=== PATIENT | female | born 2000 | race American Indian/Alaskan Native ===

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

== ENCOUNTER 2020-08-05 22:13 | Emergency (ER) | payer MEDICAID, OTHER ==
[2020-08-05 22:46] VITALS: BP 134/93
[2020-08-05 23:06] LABS: Basophils % (Auto) 0.3 % (0.0-1.8); Eosinophils # (Auto) 0.1 K/mm3 (0.0-0.4); Eosinophils % (Auto) 1.3 % (0.0-4.3); Hematocrit 38.7 % (30.3-42.9); Hemoglobin 12.8 gm/dl (10.1-14.3); Lymphocytes # (Auto) 2.8 K/mm3 (1.2-5.4); Lymphocytes % (Auto) 52.9 % (13.4-35.0); Mean Corpuscular HGB Conc 33 % (30-34); Mean Corpuscular Volume 86 fl (79-97); Monocytes # (Auto) 0.3 K/mm3 (0.0-0.8); Monocytes % (Auto) 6.2 % (0.0-7.3); Platelet Count 257 K/mm3 (140-440); Red Blood Count 4.53 M/mm3 (3.65-5.03); Red Cell Distribution Width 13.8 % (13.2-15.2)
[2020-08-05 23:29] LABS: Alanine Aminotransferase 9 units/L (7-56); Albumin 4.7 g/dL (3.9-5); Blood Urea Nitrogen 9 mg/dL (7-17); Calcium 9.3 mg/dL (8.4-10.2); Hemolysis Index 5
[2020-08-05 23:30] LABS: BUN/Creatinine Ratio 13
--- NOTE | 2020-08-06 | XRay Report ---
CHEST 2 VIEWS, 08/05/2020 10:20 PM INDICATION: Chest pain COMPARISON: None FINDINGS: Support devices: None. Heart: The cardiac silhouette is normal in size. Lungs/pleura: The lungs are clear of focal airspace disease or significant pleural effusion. Additional findings: No significant acute abnormality. IMPRESSION: 1. No evidence of acute cardiopulmonary process. Signer Name: Valencia Mercer MD Signed: 08/05/2020 11:55 PM Workstation Name: [id number]
--- NOTE | 2020-08-06 00:19 | Emergency Department Report ---
ED General Adult HPI - General Chief complaint: Chest Pain Stated complaint: CHEST PAIN X 2DAYS Time Seen by Provider: 08/05/20 23:54 Source: patient Mode of arrival: Ambulatory Limitations: No Limitations - History of Present Illness Initial comments: Patient is a 19-year-old female who presents for stabbing chest pain for the past 2 days intermittently. Patient denies history of asthma or bronchitis. There is been no fever no chills. No cough no nausea or vomiting. Symptoms are exacerbated by deep breathing and movement. Symptoms are relieved by nothing tried. Patient denies dizziness, lightheadedness, nausea or vomiting, no diaphoresis, no shortness of breath. Patient is tolerating p.o. intake without symptoms. - Related Data Previous Rx's Medication Instructions Recorded Last Taken Type Permethrin 5% [Acticin 5% CREAM] 1 applicatio TP ONCE #1 tube 12/26/16 Unknown Rx Triamcinolone Aceton 0.1% (Nf) 1 applic TP BID #1 tube 12/26/16 Unknown Rx [Kenalog (NF)] hydrOXYzine HCL [Atarax] 25 mg PO Q8H PRN #21 tablet 12/26/16 Unknown Rx Famotidine [Pepcid] 20 mg PO BID #30 tablet 08/06/20 Unknown Rx Naproxen 500 mg PO BID PRN #30 tablet 08/06/20 Unknown Rx Allergies Allergy/AdvReac Type Severity Reaction Status Date / Time peanut Allergy Angioedema Verified 06/25/18 12:01 ED Review of Systems ROS: Stated complaint: CHEST PAIN X 2DAYS Other details as noted in HPI Constitutional: denies: chills, fever Eyes: denies: eye pain, eye discharge, vision change ENT: denies: ear pain, throat pain Respiratory: cough. denies: shortness of breath, wheezing Cardiovascular: chest pain (chest wall pain ) Endocrine: no symptoms reported Gastrointestinal: as per HPI. denies: abdominal pain, nausea, vomiting Genitourinary: denies: urgency, dysuria, discharge Musculoskeletal: denies: back pain, joint swelling, arthralgia Skin: denies: rash, lesions Neurological: denies: headache, weakness, paresthesias Psychiatric: denies: anxiety, depression Hematological/Lymphatic: denies: easy bleeding, easy bruising ED Past Medical Hx - Past Medical History Previous Medical History?: No - Social History Smoking Status: Never Smoker - Medications Home Medications: Home Medications Medication Instructions Recorded Confirmed Last Taken Type Permethrin 5% [Acticin 5% CREAM] 1 applicatio TP ONCE #1 tube 12/26/16 Unknown Rx Triamcinolone Aceton 0.1% (Nf) 1 applic TP BID #1 tube 12/26/16 Unknown Rx [Kenalog (NF)] hydrOXYzine HCL [Atarax] 25 mg PO Q8H PRN #21 tablet 12/26/16 Unknown Rx Famotidine [Pepcid] 20 mg PO BID #30 tablet 08/06/20 Unknown Rx Naproxen 500 mg PO BID PRN #30 tablet 08/06/20 Unknown Rx ED Physical Exam - General Limitations: No Limitations General appearance: alert, in no apparent distress - Head Head exam: Present: atraumatic, normocephalic, normal inspection - Eye Eye exam: Present: normal appearance, PERRL, EOMI Pupils: Present: normal accommodation - ENT ENT exam: Present: mucous membranes moist - Neck Neck exam: Present: normal inspection, full ROM. Absent: tenderness - Respiratory Respiratory exam: Present: normal lung sounds bilaterally. Absent: respiratory distress, wheezes, stridor, chest wall tenderness - Cardiovascular Cardiovascular Exam: Present: regular rate, normal rhythm, normal heart sounds. Absent: systolic murmur, diastolic murmur, rubs, gallop - GI/Abdominal GI/Abdominal exam: Present: soft, normal bowel sounds. Absent: distended, tenderness, guarding, rebound, rigid, bruit, hernia - Rectal Rectal exam: Present: deferred - Extremities Exam Extremities exam: Present: normal inspection, full ROM. Absent: tenderness - Back Exam Back exam: Present: normal inspection, full ROM. Absent: CVA tenderness (R), CVA tenderness (L) - Neurological Exam Neurological exam: Present: alert, oriented X3, CN II-XII intact, normal gait - Psychiatric Psychiatric exam: Present: normal affect, normal mood - Skin Skin exam: Present: warm, dry, intact, normal color. Absent: rash ED Course Vital Signs 08/05/20 22:45 Temperature 98.1 F Pulse Rate 92 H Respiratory 16 Rate Blood Pressure 134/93 O2 Sat by Pulse 100 Oximetry ED Medical Decision Making - Lab Data Result diagrams: 08/05/20 22:53 08/05/20 22:53 Labs 08/05/20 08/05/20 22:53 22:53 WBC 5.3 RBC 4.53 Hgb 12.8 Hct 38.7 MCV 86 MCH 28 MCHC 33 RDW 13.8 Plt Count 257 Lymph % (Auto) 52.9 H Spencer % (Auto) 6.2 Eos % (Auto) 1.3 Baso % (Auto) 0.3 Lymph # (Auto) 2.8 Spencer # (Auto) 0.3 Eos # (Auto) 0.1 Baso # (Auto) 0.0 Seg Neutrophils % 39.3 L Seg Neutrophils # 2.1 Sodium 139 Potassium 3.8 Chloride 103.5 Carbon Dioxide 26 Anion Gap 13 BUN 9 Creatinine 0.7 Estimated GFR > 60 BUN/Creatinine Ratio 13 Glucose 93 Calcium 9.3 Total Bilirubin 1.10 AST 16 ALT 9 Alkaline Phosphatase 49 Total Protein 7.5 Albumin 4.7 Albumin/Globulin Ratio 1.7 - EKG Data EKG shows normal: sinus rhythm, axis, intervals, QRS complexes, ST-T waves Rate: normal - EKG Data When compared to previous EKG there are: other (no previous EKG on record ) Interpretation: normal EKG (Normal sinus rhythm no ST elevated [place]. Interpreted by ED attending.) - Radiology Data Radiology results: report reviewed, image reviewed CHEST 2 VIEWS, 08/05/2020 10:20 PM INDICATION: Chest pain COMPARISON: None FINDINGS: Support devices: None. Heart: The cardiac silhouette is normal in size. Lungs/pleura: The lungs are clear of focal airspace disease or significant pleural effusion. Additional findings: No significant acute abnormality. IMPRESSION: 1. No evidence of acute cardiopulmonary process. Signer Name: Valencia Mercer MD Signed: 08/05/2020 11:55 PM Workstation Name: [id number] Transcribed By: EB Dictated By: Valencia Mercer MD Electronically Authenticated By: Valencia Mercer MD Signed Date/Time: 08/05/202354 DD/ 54 TD/TT: - Medical Decision Making EKG normal ,clear no opacities, no infiltrates, EKG normal sinus rhythm no ST elevated [place], labs are normal. This is chest wall pain plan, NSAIDs as needed pain, follow-up with primary care doctor in 2 to 3 days. Return to emergency should symptoms worsen. Patient verbalized understanding of same. Critical care attestation.: If time is entered above; I have spent that time in minutes in the direct care of this critically ill patient, excluding procedure time. ED Disposition Clinical Impression: Chest pain Qualifiers: Chest pain type: unspecified Qualified Code(s): R07.9 - Chest pain, unspecified Disposition: DC-01 TO HOME OR SELFCARE Is pt being admited?: No Does the pt Need Aspirin: No Condition: Stable Instructions: Nonspecific Chest Pain, Adult, Chest Wall Pain, [id number] Additional Instructions: Take medication as prescribed, follow-up with primary car doctor in 2- 3 days. Prescriptions: Naproxen 500 mg PO BID PRN #30 tablet PRN Reason: pain Famotidine [Pepcid] 20 mg PO BID #30 tablet Referrals: SANTIAGO WASSERMAN MD [Referring] - 3-5 Days Forms: Work/School Release Form(ED) Time of Disposition: 00:27
--- NOTE | 2020-08-06 19:44 | Electrocardiograph Report ---
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 No previous ECG available for comparison Electronically Signed On 08-06-2020 19:44:08 EDT by Clyde John
== END 2020-08-06 00:45 | disposition home or self-care (01) ==
LOC: ED 22:13
DX: R07.9 Chest pain, unspecified (principal); Z79.899 Other long term (current) drug therapy; Z91.010 Allergy to peanuts
CPT/HCPCS: 36415; 71046; 80053; 85025; 93005